=== PATIENT | female | born 1980 | race Two or more races ===

== ENCOUNTER 2018-07-29 12:15 | Outpatient (CLI) | payer OTHER | END 2018-07-29 12:17 | disposition home or self-care (01) | LOC: SONOGRAMA 12:15 | DX: M25.512 Pain in left shoulder (principal) ==

== ENCOUNTER 2019-02-22 16:06 | Outpatient (CLI) | payer OTHER | END 2019-02-22 16:51 | disposition home or self-care (01) | LOC: TOM 16:06 | DX: M25.512 Pain in left shoulder (principal); M24.412 Recurrent dislocation, left shoulder ==